=== PATIENT | female | born 1980 | race Caucasian/White ===

== ENCOUNTER 2020-12-25 07:39 | Outpatient (REF) | payer OTHER, SELFPAY ==
[2020-12-25 12:04] LABS: TSH reflex Free T4 1.35 uIU/mL (0.32-4.0)
== END 2020-12-25 07:40 | disposition home or self-care (01) ==
LOC: HO.HMGCLDS 07:39
PROVIDERS: PCP Student in an Organized Health Care Education/Training Program; Visit Provider Internal Medicine
DX: E05.00 Thyrotoxicosis with diffuse goiter without thyrotoxic crisis or storm (principal)
CPT/HCPCS: 36415; 84443

== ENCOUNTER 2021-02-18 12:58 | Outpatient (REF) | payer OTHER, SELFPAY ==
--- NOTE | ~2021-02-18 | MM_ITS ---
EXAMINATION: MM SCREENING DIGITAL BREAST TOMOSYNTHESIS, BILATERAL CLINICAL INFORMATION: Screening. Asymptomatic. Age 40. No prior breast imaging. Family history breast cancer, mother. The lifetime risk of breast cancer based on the Tyrer-Cuzick Model is 22%. COMPARISON: None (current study represents initial baseline exam). TECHNIQUE: Digital breast tomosynthesis is performed in both the craniocaudal and mediolateral oblique views along with computer-aided detection (CAD). Synthesized 2D images are generated from the tomosynthesis. FINDINGS: The breasts are heterogeneously dense, which may obscure small masses (ACR BI-RADS breast composition Category c). There are no significant masses, abnormal calcifications, or other abnormalities. The axilla and skin contours are unremarkable. MM/MM tomosynthesis screening BI IMPRESSION: No mammographic evidence of malignancy. ASSESSMENT: BI-RADS 1: Negative RECOMMENDATION: 1. Routine annual mammography screening. 2. The lifetime risk of breast cancer based on the Tyrer-Cuzick Model is 22%. Additional annual adjunct screening with breast MRI may be of benefit in women with a risk score of 20% or greater. This patient's information was entered into a reminder system with a target due date for their next mammogram.
== END 2021-02-18 12:59 | disposition home or self-care (01) ==
LOC: HO.MAMMO 12:58
PROVIDERS: Visit Provider Student in an Organized Health Care Education/Training Program
DX: Z12.31 Encounter for screening mammogram for malignant neoplasm of breast (principal)
CPT/HCPCS: 77063; 77067

== ENCOUNTER 2022-03-03 13:37 | Outpatient (REF) | payer OTHER, SELFPAY ==
--- NOTE | ~2022-03-03 | MM_ITS ---
EXAMINATION: MM SCREENING DIGITAL BREAST TOMOSYNTHESIS, BILATERAL CLINICAL INFORMATION: Screening. Asymptomatic. Family history breast cancer, mother and grandmother. The lifetime risk of breast cancer based on the Tyrer-Cuzick Model is 26%. COMPARISON: Mammography: 02/18/2021 (baseline) TECHNIQUE: Digital breast tomosynthesis is performed in both the craniocaudal and mediolateral oblique views along with computer-aided detection (CAD). Synthesized 2D images are generated from the tomosynthesis. FINDINGS: The breasts are heterogeneously dense, which may obscure small masses (ACR BI-RADS breast composition Category c). There are no significant masses, abnormal calcifications, or other abnormalities. Parenchymal pattern is similar to prior baseline exam. There is no developing density or architectural abnormality. The axilla and skin contours are unremarkable. No significant changes. MM/MM tomosynthesis screening BI IMPRESSION: No mammographic evidence of malignancy. ASSESSMENT: BI-RADS 1: Negative RECOMMENDATION: Routine annual mammography screening. This patient's information was entered into a reminder system with a target due date for their next mammogram.
== END 2022-03-03 13:38 | disposition home or self-care (01) ==
LOC: HO.MAMMO 13:37
PROVIDERS: PCP Student in an Organized Health Care Education/Training Program; Visit Provider Student in an Organized Health Care Education/Training Program
DX: Z12.31 Encounter for screening mammogram for malignant neoplasm of breast (principal)
CPT/HCPCS: 77063; 77067

== ENCOUNTER 2023-03-05 14:26 | Outpatient (REF) | payer OTHER, SELFPAY ==
--- NOTE | ~2023-03-05 | MM_ITS ---
EXAMINATION: MM SCREENING DIGITAL BREAST TOMOSYNTHESIS, BILATERAL CLINICAL INFORMATION: Screening. Asymptomatic. COMPARISON: Mammography: This study is compared with prior exams dating back to 2020. TECHNIQUE: Digital breast tomosynthesis is performed in both the craniocaudal and mediolateral oblique views along with computer-aided detection (CAD). Synthesized 2D images are generated from the tomosynthesis. FINDINGS: The breasts are heterogeneously dense, which may obscure small masses (ACR BI-RADS breast composition Category c). There are no significant masses, abnormal calcifications, or other abnormalities. MM/MM tomosynthesis screening BI IMPRESSION: No mammographic evidence of malignancy. ASSESSMENT: BI-RADS BI-RADS 1 - Negative RECOMMENDATION: Routine annual mammography screening. 1 year F/U This examination should not preclude the clinical evaluation of a suspicious palpable abnormality. This patient's information was entered into a reminder system with a target due date for their next mammogram.
== END 2023-03-05 14:27 | disposition home or self-care (01) ==
LOC: HO.MAMMO 14:26
PROVIDERS: Visit Provider Student in an Organized Health Care Education/Training Program
DX: Z12.31 Encounter for screening mammogram for malignant neoplasm of breast (principal)
CPT/HCPCS: 77063; 77067

== ENCOUNTER → 2023-03-05 14:45 | Outpatient (BNV) | payer OTHER, SELFPAY | PROVIDERS: Visit Provider Radiology Diagnostic Radiology | DX: Z12.31 Encounter for screening mammogram for malignant neoplasm of breast (principal) | CPT/HCPCS: 77063; 77067 ==

== ENCOUNTER 2023-12-28 08:33 | Outpatient (REF) | payer OTHER, SELFPAY ==
[2023-12-28 15:27] LABS: Alanine Aminotransferase 16 U/L (0-31); Albumin Level 4.1 g/dL (3.5-5.0); Alkaline Phosphatase 76 U/L (39-117); Anion Gap 15 (12-20); Aspartate Amino Transferase 16 U/L (5-31); Bilirubin Direct 0.1 mg/dL (0.0-0.5); Bilirubin Total 0.4 mg/dL (0.0-1.0); Blood Urea Nitrogen 11 mg/dL (9-16); Calcium 9.7 mg/dL (8.4-10.2); Carbon Dioxide 22 mmol/L (22-29); Chloride 106 mmol/L (96-108); Cholesterol 195 mg/dL (<200); Estimated Glomerular Filt Rate > 60; Glucose Random 86 mg/dL (60-115); HDL Cholesterol 52 mg/dL (>40); LDL Cholesterol Calculated 95 mg/dL (<100); Potassium 3.8 mmol/L (3.3-5.1); Sodium 139 mmol/L (135-145); Total Protein 7.4 g/dL (6.5-8.0); Triglycerides 241 mg/dL (<150)
[2023-12-28 15:44] LABS: TSH reflex Free T4 2.99 uIU/mL (0.32-4.0)
[2023-12-31 08:33] LABS: HIV AB/AG Nonreactive (Nonreactive); HIV Num 1 0.04 S/CO (0.00-0.99); ~HepC Num1 0.19 S/CO (0.00-0.79); ~Hepatitis C Antibody Nonreactive (Nonreactive)
== END 2023-12-28 08:34 | disposition home or self-care (01) ==
LOC: HO.CHCLDS 08:33
PROVIDERS: Visit Provider Student in an Organized Health Care Education/Training Program
DX: Z00.00 Encounter for general adult medical examination without abnormal findings (principal); E78.1 Pure hyperglyceridemia; E05.00 Thyrotoxicosis with diffuse goiter without thyrotoxic crisis or storm
CPT/HCPCS: 36415; 80048; 80061; 80076; 84443; 86803; 87389

== ENCOUNTER 2025-02-19 08:55 | Outpatient (REF) | payer OTHER, SELFPAY ==
--- OUTSIDE RECORDS SUMMARY | 2025-02-19 08:12 | XMS_ITS | Encounter Summary ---
Author Organization [facility] Address [address] [place] [address] Care Team Providers Care Fruit And Vegetable Classer Name Role Phone Cheri Spencer TELEGRAPHIC TYPEWRITER REPAIRER Primary Care Provider [phone] Reason for Referral * Imaging (Routine) - Authorized Specialty Diagnoses / Procedures Referred By Rohit t Referred To Contact Radiology Diagnoses Encounter for screening mammogram for breast cancer Procedures MG Mammo Digital Screening w Doyle bilat [facility], Self Referral [facility] Referral ID Status Reason Start Date Expiration Date V isits Requested Visits Authorized [id number] Authorized 01/13/2025 01/13/2026 1 1 * Imaging (Routine) - Authorized Specialty Diagnoses / Procedures Referred By Contac t Referred To Contact Radiology Diagnoses Encounter for screening mammogram for breast cancer Procedures MG Mammo Digital Screening w Doyle bilat [facility], Self Referral [facility] Referral ID Status Reason Start Date Expiration Date V isits Requested Visits Authorized [id number] Authorized 01/13/2025 01/13/2026 1 1 Reason for Visit * Imaging (Routine) - Authorized Specialty Diagnoses / Procedures Referred By Contac t Referred To Contact Radiology Diagnoses Encounter for screening mammogram for breast cancer Procedures MG Mammo Digital Screening w Doyle bilat [facility], Self Referral [facility] Referral ID Status Reason Start Date Expiration Date V isits Requested Visits Authorized [id number] Authorized 01/13/2025 01/13/2026 1 1 Encounter Details Date Type Department Care Team (Latest Contact Info) Description 02/19/2025 8:12 AM EST Hospital [facility] [address] [id number] Encounter for screening mammogram for breast cancer Social History Tobacco Use Types Packs/Day Years Used Date Smoking Tobacco: Never Assessed Comments No Sex and Gender Information Value Date Recorded Sex Assigned at Not on file Legal Sex Female 1:57 PM EST Gender Identity Not on file Sexual Orientation Not on file documented as of this encounter Plan of Treatment Not on file documented as of this encounter Procedures Procedure Name Priority Date/Time Associated Diagnosis Comments MG MAMMO DIGITAL SCREENING W DOYLE BILAT Routine 02/19/2025 8:24 AM EST Encounter for screening mammogram for breast cancer documented in this encounter Results * MG Mammo Digital Screening w Doyle bilat (02/19/2025 8:24 AM EST) Anatomical Region Laterality Modality Breast Bilateral Mammography 02/19/2025 8:38 AM EST Impressions 02/19/2025 8:39 AM EST No evidence of breast malignancy. BI-RADS CATEGORY: 1 - NEGATIVE RECOMMENDATION: Screening bilateral mammogram is recommended in 1 year. Mammo Location: [facility], [address] [place] [address], [id number], . -------- FINAL REPORT -------- Dictated By: Consuelo Cobb Dictated Date: 02/19/2025 08:38 ET Assigned Physician: Consuelo Cobb Reviewed and Electronically Signed By: Consuelo Cobb Signed Date: 02/19/2025 08:39 ET Workstation ID: [id number] Transcribed By: Self Edit Transcribed Date: 02/19/2025 08:38 ET Narrative 02/19/2025 8:39 AM EST CLINICAL: 44 years old, Female, routine annual exam. COMPARISON: No prior studies dating back to 2020 TECHNIQUE: Bilateral MLO and CC views were obtained digitally with 3-D mammogram (digital breast tomosynthesis). Computer-aided detection was utilized in evaluation of this exam (CAD). FINDINGS: There is no evidence of suspicious mass or architectural distortion. No worrisome calcifications are evident. There has been no significant change from prior exam(s). BREAST DENSITY: C - The breasts are heterogeneously dense which may obscure small masses. Procedure Note Consuelo Cobb MD - 02/19/2025 CLINICAL: 44 years old, Female, routine annual exam. COMPARISON: No prior studies dating back to 2020 TECHNIQUE: Bilateral MLO and CC views were obtained digitally with 3-Dmammogram (digital breast tomosynthesis). Computer-aided detection wasutilized in evaluation of this exam (CAD). FINDINGS: There is no evidence of suspicious mass or architectural distortion. Noworrisome calcifications are evident. There has been no significantchange from prior exam(s). BREAST DENSITY: C - The breasts are heterogeneously dense which mayobscure small masses. IMPRESSION: No evidence of breast malignancy. BI-RADS CATEGORY: 1 - NEGATIVE RECOMMENDATION: Screening bilateral mammogram is recommended in 1 year. Mammo Location: [facility], [address] [place] [address], [id number], . -------- FINAL REPORT -------- Dictated By: Consuelo Cobb Dictated Date: 02/19/2025 08:38 ET Assigned Physician: Consuelo Cobb Reviewed and Electronically Signed By: Consuelo Cobb Signed Date: 02/19/2025 08:39 ET Workstation ID: [id number] Transcribed By: Self Edit Transcribed Date: 02/19/2025 08:38 ET us Self Referral [facility] IMG BI PROCEDURES Final Resul t documented in this encounter Visit Diagnoses Diagnosis Encounter for screening mammogram for breast cancer documented in this encounter Care Teams Fruit And Vegetable Classer Relationship Specialty Start Date End Date Cheri Spencer NP [address] [place] [id number] PCP - General Family Medicine 02/19/25 documented as of this encounter
--- OUTSIDE RECORDS SUMMARY | 2025-02-19 09:36 | XMS_ITS | Encounter Summary ---
Author Organization [facility] Address [address] [place] [address] [address] [place] [address] Care Team Providers Care Decision Unit Rn Name Role Phone Macey Arevalo MD Primary Care Provider [phone] Cheri Spencer CNP Primary Care Provider [phone] Reason for Visit * Reason Comments Med Refill Encounter Details Date Type Department Care Team ([facility] st Contact Info) Description 12/04/2022 Refill [facility] MED & PEDS [address] [place] [address] Macey Arevalo MD [address] [place] [address] Hypercholesterolemia Social History Tobacco Use Types Packs/Day Years Used Date Smoking Tobacco: Never Smokeless Tobacco: Never Alcohol Use Standard Drinks/Week Comments Never 0 (1 standard drink = 0.6 oz pur e alcohol) Comments Unknown Sex and Gender Information Value Date Recorded Sex Assigned at Female 02/13/2022 10:17 AM EDT Legal Sex Female 10:17 AM EDT Gender Identity Female 02/13/2022 10:17 AM EDT Sexual Orientation Don't know 02/13/2022 10 :17 AM EDT documented as of this encounter Plan of Treatment Not on file documented as of this encounter Visit Diagnoses Diagnosis Hypercholesterolemia Pure hypercholesterolemia documented in this encounter Care Teams Decision Unit Rn Relationship Specialty Start Date End Date Macey Arevalo MD [address] [place] [id number] PCP - General Family Medicine 09/05/13 11/19/24 Cheri Spencer CNP [address] [place] [address] PCP - General Family Medicine 11/20/24 documented as of this encounter
--- OUTSIDE RECORDS SUMMARY | 2025-02-19 09:36 | XMS_ITS | Clinical Summary ---
Author Organization [facility] Address [address] [place] [address] Phone Care Team Providers Care Telecommunications Field Engineer Name Role Phone Cheri Spencer NP Primary Care Provider [phone] Encounters Date Type Department Care Team Description 02/19/2025 8:12 AM EST Hospital [facility] [address] [address] Encounter for screening mammogram for breast cancer from Last 3 Months Family History Medical History Relation Name Comments Breast cancer Maternal Grandmother Breast cancer Mother Relation Name Status Comments Maternal Grandmother Mother Social History Tobacco Use Types Packs/Day Years Used Date Smoking Tobacco: Never Assessed Comments No Sex and Gender Information Value Date Recorded Sex Assigned at Not on file Legal Sex Female 1:57 PM EST Gender Identity Not on file Sexual Orientation Not on file Obstetrics History Para Term AB IAB SAB Ectopic Multiple Livin g Live Births 0 Last Filed Vital Signs Vital Sign Reading Time Taken Comments Blood Pressure - - Pulse - - Temperature - - Respiratory Rate - - Oxygen Saturation - - Inhaled Oxygen Concentration - - Weight 79.4 kg (175 lb) 02/18/2024 2:37 PM EST Height 160 cm (5' 3 ) 02/18/2024 2:37 PM EST Body Mass Index 31 02/18/2024 2:37 PM EST Plan of Treatment Health Maintenance Due Date Last Done Comments Cervical Cancer Screening: P ap Smear 2001 HPV Vaccines (1 - 3-dose SCD M series) 12/13/2007 Hepatitis B Vaccines (3 of 3 - 19+ 3-dose series) 01/26/2016 12/01/2015, 07/16/2015 Social Influencers of Health Screening 03/15/2022 Depression Screening 04/16/2024 COVID-19 Vaccine (1 - 2023-2 5 season) 2024 Influenza Vaccine (#1) 2024 Breast Cancer Screening 02/19/2027 02/20/20, 02/18/2024 Cholesterol Screening (Lipid Panel) 12/27/2028 12/28/2023 DTaP,Tdap,and Td Vaccines (4 - Td or Tdap) 12/20/2033 12/21/2023, 02/07/2014, 09/25/2008 RSV Immunization Adult Patients (1 - 1-dose 75+ series) 12/13/2055 HIV Screening Completed 12/28/2023 Hepatitis C Screening Completed 12/28/2023 HIB Vaccines Aged Out No longer eligi ble based on patient's age to complete this topic Hepatitis A Vaccines Aged Out No long er eligible based on patient's age to complete this topic IPV Vaccines Aged Out No longer eligi ble based on patient's age to complete this topic MMR Vaccines Aged Out No longer eligi ble based on patient's age to complete this topic Meningococcal ACWY Vaccine Aged Out N o longer eligible based on patient's age to complete this topic Meningococcal B Vaccine Aged Out No l onger eligible based on patient's age to complete this topic Pneumococcal Vaccine: Pediatrics (0 to 5 Years) and At-Risk Patients (6 to 49 Years) Aged Out No longer eligible b ased on patient's age to complete this topic RSV Immunization Patients Under 20 months Aged Out No longer eligible b ased on patient's age to complete this topic Varicella Vaccines Aged Out No longer eligible based on patient's age to complete this topic Procedures Procedure Name Priority Date/Time Associated Diagnosis Comments MG MAMMO DIGITAL SCREENING W DOYLE BILAT Routine 02/19/2025 8:24 AM EST Encounter for screening mammogram for breast cancer from Last 3 Months Results * MG Mammo Digital Screening w Doyle bilat (02/19/2025 8:24 AM EST) Anatomical Region Laterality Modality Breast Bilateral Mammography 02/19/2025 8:38 AM EST Impressions 02/19/2025 8:39 AM EST No evidence of breast malignancy. BI-RADS CATEGORY: 1 - NEGATIVE RECOMMENDATION: Screening bilateral mammogram is recommended in 1 year. Mammo Location: [facility], [address] [place] [address], [address], . -------- FINAL REPORT -------- Dictated By: Consuelo Cobb Dictated Date: 02/19/2025 08:38 ET Assigned Physician: Consuelo Cobb Reviewed and Electronically Signed By: Consuelo Cobb Signed Date: 02/19/2025 08:39 ET Workstation ID: [id number] Transcribed By: Self Edit Transcribed Date: 02/19/2025 [...] year. Mammo Location: [facility], [address] [place] [address], [address], . -------- FINAL REPORT -------- Dictated By: Consuelo Cobb Dictated Date: 02/19/2025 08:38 ET Assigned Physician: Consuelo Cobb Reviewed and Electronically Signed By: Consuelo Cobb Signed Date: 02/19/2025 08:39 ET Workstation ID: [id number] Transcribed By: Self Edit Transcribed Date: 02/19/2025 08:38 ET us Self Referral [facility] IMG BI PROCEDURES Final Resul t from Last 3 Months Insurance [employer] Care Teams Telecommunications Field Engineer Relationship Specialty Start Date End Date Cheri Spencer NP [address] [place] [id number] PCP - General Family Medicine 02/19/25
--- OUTSIDE RECORDS SUMMARY | 2025-02-19 09:36 | XMS_ITS | Encounter Summary ---
Author Organization [facility] Address [address] [facility] [address] [place] [address] Care Team Providers Care Account Information Clerk Name Role Phone Macey Arevalo MD Primary Care Provider [phone] Cheri Spencer CNP Primary Care Provider [phone] Encounter Details Date Type Department Care Team (Late st Contact Info) Description 02/22/2024 Orders Only [facility] MED & PEDS [address] [place] [address] Provider, MD Bee Social History Tobacco Use Types Packs/Day Years Used Date Smoking Tobacco: Never Smokeless Tobacco: Never Alcohol Use Standard Drinks/Week Comments Never 0 (1 standard drink = 0.6 oz pur e alcohol) Depression Answer Date Recorded Patient Health Questionnaire-9 Score 1 12/21/2023 Patient Health Questionnaire-9 Score 1 12/21/2023 Last PHQ-9: Questionnaire Data Not on file 0 12/21/2023 Housing Stability Answer Date Recorded What is your housing situation today? I have yannick ferrera 02/19/[address] you li ve. Do you have problems with any of the following? None of the above 02/19/2023 Food Insecurity Answer Date Recorded Within the past 12 months, y ou worried that your food would run out before you got money to buy more: Never True 02/19/2023 Within the past 12 months,th e food you bought just didn't last and you didn't have enough money to get more: Never True 09/2022 Transportation Answer Date Recorded In the past 12 months, has l ack of transportation kept you from medical appts, meetings, work or from getting things needed for daily living? No 02/19/2023 Utilities Answer Date Recorded In the past 12 months, has t he electric, gas, oil or water company threatened to shut off services in your home? No 02/19/2023 Depression Answer Date Recorded Patient Health Questionnaire-2 Score 0 12/21/2023 Comments Unknown Sex and Gender Information Value Date Recorded Sex Assigned at Female 02/13/2022 10:17 AM EDT Legal Sex Female 10:17 AM EDT Gender Identity Female 02/13/2022 10:17 AM EDT Sexual Orientation Don't know 02/13/2022 10 :17 AM EDT documented as of this encounter Plan of Treatment Not on file documented as of this encounter Procedures Procedure Name Priority Date/Time Associated Diagnosis Comments HM MAMMOGRAPHY Routine 02/18/2024 8:40 AM EST documented in this encounter Results * Hm Mammography (02/18/2024 8:40 AM EST) Anatomical Region Laterality Modality Other Historical Provider HEALTH MAINTENANCE Final Result documented in this encounter Visit Diagnoses Not on filedocumented in this encounter Additional Health Concerns Assessment Noted Time PHQ-9 Depression Total Score: 1 12/21/19 24 11:03 AM EDT documented as of this encounter Care Teams Account Information Clerk Relationship Specialty Start Date End Date Macey Arevalo MD [address] [place] [address] PCP - General Family Medicine 09/05/13 11/19/24 Cheri Spencer CNP [address] [place] [address] PCP - General Family Medicine 11/20/24 documented as of this encounter
--- OUTSIDE RECORDS SUMMARY | 2025-02-19 09:36 | XMS_ITS | Encounter Summary ---
Author Organization [facility] Address [address] [place] [id number] Care Team Providers Care Shipping Assistant Name Role Phone Macey Arevalo MD Primary Care Provider Cheri Spencer CNP Primary Care Provider [phone] Reason for Visit * Reason Comments Med Refill Encounter Details Date Type Department Care Team ([facility] st Contact Info) Description 09/14/2022 Refill [facility] MED & PEDS [address] [place] [address] Macey Arevalo MD [address] [place] [address] Hypercholesterolemia Social History Tobacco Use Types Packs/Day Years Used Date Smoking Tobacco: Never Assessed Comments Unknown Sex and Gender Information Value [...] hypercholesterolemia documented in this encounter Care Teams Shipping Assistant Relationship Specialty Start Date End Date Macey Arevalo MD [address] [place] [address] PCP - General Family Medicine 09/05/13 11/19/24 Cheri Spencer CNP [address] [place] [address] PCP - General Family Medicine 11/20/24 documented as of this encounter
--- OUTSIDE RECORDS SUMMARY | 2025-02-19 09:37 | XMS_ITS | Clinical Summary ---
Author Organization [employer] Address [address] [place] [address] [address] [place] [address] Care Team Providers Care Corn Grower Name Role Phone Tj Robinsonjairfabrizio GENARO Primary Care Provider [phone] Allergies Active Allergy Reactions Criticality Noted Date Comments Codeine Nausea Only Medications gemfibrozil (Lopid) 600 MG tabletIndication s:Hypertriglycer idemia Take 1 tablet (600 mg) by mouth before breakfast and before evening meal. 60 tablet 11 02/06/20 25 026 Active drospirenone-eth inyl estradiol (Leticia) 3-0.03 MG tabletIndication s:Encounter for contraceptive management, unspecified type Take 1 tablet by mouth Once per day. 84 tablet 3 02/06/20 25 Active traZODone (Desyrel) 100 MG tabletIndication s:Insomnia, unspecified type Take 1 tablet (100 mg) by mouth at bedtime. 180 tablet 1 02/06/20 25 Active gemfibrozil (Lopid) 600 MG tablet Take 1 tablet (600 mg) by mouth before breakfast and before evening meal. 60 tablet 11 01/04/20 24 025 Discontinued(R eorder (will not trigger notification to Pharmacy)) Leticia 3-0.03 MG tabletIndication s:Encounter for contraceptive management, unspecified type TAKE 1 TABLET BY MOUTH EVERY DAY 84 tablet 3 03/25/20 24 025 Discontinued(R eorder (will not trigger notification to Pharmacy)) traZODone (Desyrel) 100 MG tablet TAKE 1 TABLET BY MOUTH TWICE A DAY AFTER MEALS 180 tablet 1 04/28/19 25 025 Discontinued(R eorder (will not trigger notification to Pharmacy)) Active Problems Problem Noted Date Diagnosed Date Palpitation 07/12/2022 Assessment & Plan (07/12/2022 2:38 PM EDT): Patient with hx of hyperthyroidism, refers she experienced a episoide of palpitation/tachycardia after a workout, denied weight loss/tremors/diarrhea/mood changes. Patient off methimazole, will order new labs for guidance of therapy Hypertriglyceridemia 07/12/2022 Assessment & Plan (02/05/2025 1:34 PM EDT): Recheck lipids today Refilled medications Orders: gemfibrozil (Lopid) 600 MG tablet; Take 1 tablet (600 mg) by mouth before breakfast and before evening meal. Assessment & Plan (07/12/2022 2:39 PM EDT): On gemfibrozil, will order new labs for guidance of therapy Graves' disease 08/15/2012 Resolved Problems Problem Noted Date Diagnosed Date Resolved Date Phobia 08/15/2012 02/05/2025 Encounters Date Type Department Care Team Description 02/05/2025 1:00 PM EDT Office Visit [facility] [address] [place] [address] Cheri Spencer CNP Encounter for physical examination (Primary Dx); Encounter for screening mammogram for breast cancer; Encounter for contraceptive management, unspecified type; Hypertriglyceridemia; Insomnia, unspecified type; Encounter for gynecological examination; Elevated BP reading w/ no diagnosis of HTN 02/05/2025 Travel 02/04/2025 Travel 01/30/2025 Telephone [facility] [address] [place] [address] Cheri Spencer CNP chart prep 01/16/2025 Telephone [facility] [address] [place] [address] Cheri Spencer CNP triage from Last 3 Months Immunizations Immunization Administration Dates Next Due Hep B, adult 12/01/2015,07/16/2015 Td (adult), 5 Lf tetanus tox oid, preservative free, adsorbed 02/07/2014,09/25/2008 Tdap 12/21/2023 Social History Tobacco Use Types Packs/Day Years Used Date Smoking Tobacco: Never Smokeless Tobacco: Never Tobacco Cessation:Counseling Given: Not Answered Alcohol Use Standard Drinks/Week Comments Never 0 (1 standard drink = 0.6 oz pur e alcohol) Depression Answer Date Recorded Patient Health Questionnaire-9 Score 3 02/05/2025 Patient Health Questionnaire-9 Score 3 02/05/2025 Last PHQ-9: Questionnaire Data Not on file 1 Housing Stability Answer Date Recorded What is your housing situation today? I have yannick ferrera 02/05/[address] you li ve. Do you have problems with any of the following? None of the above 02/05/2025 Food Insecurity Answer Date Recorded Within the past 12 months, y ou worried that your food would run out before you got money to buy more: Never True 02/05/2025 Within the past 12 months,th e food you bought just didn't last and you didn't have enough money to get more: Never True Transportation Answer Date Recorded In the past 12 months, has l ack of transportation kept you from medical appts, meetings, work or from getting things needed for daily living? No 02/05/2025 Utilities Answer Date Recorded In the past 12 months, has t he electric, gas, oil or water company threatened to shut off services in your home? No 02/05/2025 Depression Answer Date Recorded Patient Health Questionnaire-2 Score 0 02/05/2025 Internet Access Answer Date Recorded Internet Access Q1 Yes 02/05/2025 Internet Access Q2 Not on file 02/05/2025 Comments No Sex and Gender Information Value Date Recorded Sex Assigned at Female 02/13/2022 10:17 AM EDT Legal Sex Female 10:17 AM EDT Gender Identity Female 02/13/2022 10:17 AM EDT Sexual Orientation Don't know 02/13/2022 10 :17 AM EDT Last Filed Vital Signs Vital Sign Reading Time Taken Comments Blood Pressure 140/86 02/05/2025 1:12 PM EDT Pulse 82 02/05/2025 1:12 PM EDT Temperature 36.8 C (98.2 F) 02/05/2025 1:12 PM EDT Respiratory Rate 16 02/05/2025 1:12 PM EDT Oxygen Saturation 98% 02/05/2025 1:12 PM EDT Inhaled Oxygen Concentration - - Weight 80.3 kg (177 lb) 02/05/2025 1:12 PM EDT Height 165 cm (5' 4.96 ) 02/05/2025 1:12 PM EDT Body Mass Index 29.49 02/05/2025 1:12 PM EDT Plan of Treatment Health Maintenance Due Date Last Done Comments Family Planning (PISQ) 12/13/1995 HPV Vaccines (1 - 3-dose series) 12/13/1995 Pap Smear 2001 Hepatitis B Vaccines (3 of 3 - 19+ 3-dose series) 01/26/2016 12/01/2015, 07/16/2015 Cervical Cancer Screening 02/05/2024 HPV/Cotest 02/05/2024 02/04/2019 COVID-19 Vaccine ( season) 2024 Influenza Vaccine (#1) 2024 Alcohol/Substance Use Screening 02/05/2026 02/05/2025 Depression Screening 02/05/2026 02/05/2025, 02/06/20 25 Disability Screening 02/05/2026 02/05/2025 SDOH Screening 02/05/2026 02/05/2025 Tobacco Screening 02/05/2026 02/05/2025 Mammogram 02/17/2026 02/18/2024, 11/0 07/2023, 02/18/2024, Additional history exists Zoster Vaccines (1 of 2) 2030 DTaP/Tdap/Td Vaccines (2 - Td or Tdap) 12/20/2033 12/21/2023, 02/07/2014, 09/25/2008 RSV Patients and Patients Aged 60 years or older (1 - 1-dose 75+ series) 12/13/2055 HIV [...] patient's age to complete this topic Meningococcal Vaccine Aged Out No tejas summer eligible based on patient's age to complete this topic Pneumococcal Vaccine: Pediatrics (0 to 5 Years) and At-Risk Patients (6 to 49) Years Aged Out No longer eligible based on patient's age to complete this topic RSV under 20 months Aged Out No longe r eligible based on patient's age to complete this topic Rotavirus Vaccines Aged Out No longer eligible based on patient's age to complete this topic Procedures Procedure Name Priority Date/Time Associated Diagnosis Comments HM MAMMOGRAPHY Routine 02/18/2024 8:40 AM EST HEPATITIS C AB W/REFL TO HCV RNA, QN, PCR Routine 12/28/2023 8:34 AM EDT PE (physical exam), annual HIV 1/2 ANTIGEN/ANTIBODY, FOURTH GENERATION W/RFL Routine 12/28/2023 8:34 AM EDT PE (physical exam), annual ZZZ HISTORICAL HPV MRNA E6/E7 Routine 02/04/2019 12:00 AM EDT from Last 3 Months or Most Recently Relevant to Health Maintenance Results * Hm Mammography (02/18/2024 8:40 AM EST) Anatomical Region Laterality Modality Other Historical Provider HEALTH MAINTENANCE Final Result * Hepatitis C Antibody with Reflex to HCV, RNA, Quantitative, Real-Time PCR (12/28/2023 8:34 AM EDT) Hepatitis C Antibody Nonreactive Nonreactive [facility] Comment:Antibodies to HCV no t detected; does not exclude early acuteHCV infection. Blood Venous blood specimen / Unknown 12/28/2023 8:34 AM EDT 12/28/2023 2:52 PM EDT Macey Arevalo MD LAB BLOOD ORDERABLES Final Resul t [facility] [address] [place] [phone] * HIV-1/2 Antigen and Antibodies, Fourth Generation, with Reflexes (12/28/2023 8:34 AM EDT) Pathologist [facility] HIV AB/AG Nonreactive Nonreactive [facility] Comment:HIV-1 p24 Ag and/or HIV-1/HIV-2 Ab not detected.A test result that is nonreactive does not exclude thepossibility of exposure to or infection with HIV-1 and/orHIV-2. Nonreactive results in this assay for individualswith prior exposure to HIV-1 and/or HIV-2 may be due toantigen and antibody levels that are below the limit ofdetection of this assay.The [employer] HIV Ag/Ab Combo assay result andsupplemental assay results should be interpreted inconjunction with the patient's clinical presentation,history and other laboratory results. If the results areinconsistent with clinical evidence, additional testing issuggested to confirm the result. Blood Venous blood specimen / Unknown 12/28/2023 8:34 AM EDT 12/28/2023 2:52 PM EDT us Macey Arevalo MD LAB BLOOD ORDERABLES Final Resul t [facility] [address] [place] [address] [phone] * HPV mRNA E6/E7 (02/04/2019 12:00 AM EDT) [facility] HPV mRNA E6/E7 Not Detected NOT DETECTED [facility] Comment: This test was performed using the APTIMA(R) HPV Assay ([employer] This assay detects E6/E7 viral messenger RNA (mRNA) from 14 high-risk HPV types (16,18,31,33,35,39,45,51, 52,56,58,59,66,68). For additional information please refer to: http://education.[employer]/faq/BOG249g5 (This link is being provided for informational/ educational purposes only.) The analytical performance characteristics of this assay have been determined by [facility] [place]. The modifications have not been cleared or approved by the FDA. This assay has been validated pursuant to the CLIA regulations and is used for clinical purposes. Test Performed by [facility] [employer] [place], [address] [place], [place] Sarwat Hendricks M.D., Ph.D., Director of Laboratories , CLIA [id number] Please note: Effective 12/27/2015, HPV testing will be performed using [employer]'s APTIMA test which targets mRNA. Detecting mRNA instead of DNA, as in older methods, offers significant improvements in specificity. 02/04/2019 us Macey Arevalo MD HISTORICAL/NON ORDERABLE LABS Fi nal Result [facility] [address] from Last 3 Months or Most Recently Relevant to [place] [id number] Care Teams Corn Grower Relationship Specialty Start Date End Date Cheri Spencer CNP PCP - General Family Medicine 11/20/24
[2025-02-19 14:11] LABS: MANUAL DIFF FLAG NO
[2025-02-19 14:17] LABS: Hematocrit 39.4 % (37.0-47.0); Hemoglobin 12.8 g/dl (12.0-16.0); Imm Gran Abs Auto 0.01 X10*3/uL (0.00-0.03); Imm Gran Pct Auto 0.1 % (0.0-0.4); Lymphocytes Absolute Auto 1.5 X10*3/uL (1.2-4.9); Mean Corpuscular HGB Conc 32.5 g/dl (31.0-35.0); Mean Corpuscular Hemoglobin 30.6 pg (27.0-33.0); Mean Corpuscular Volume 94.3 fL (80.0-98.0); NRBC Abs Auto 0.000 X10*3/uL (0.0-0.012); NRBC Pct Auto 0.0 /100WBC (0.0-0.2); Platelet Count 262 X10*3/uL (160-400); Red Blood Count 4.18 X10*6/uL (4.20-5.50); White Blood Count 6.7 X10*3/uL (4.8-10.8)
[2025-02-19 14:35] LABS: Anion Gap 12 (12-20); Blood Urea Nitrogen 12 mg/dL (9-16); Calcium 9.1 mg/dL (8.4-10.2); Carbon Dioxide 23 mmol/L (22-29); Chloride 107 mmol/L (96-108); Cholesterol 218 mg/dL (<200); Estimated Glomerular Filt Rate > 60; HDL Cholesterol 59 mg/dL (>40); Potassium 3.9 mmol/L (3.3-5.1); Sodium 138 mmol/L (135-145); Triglycerides 144 mg/dL (<150)
== END 2025-02-19 08:56 | disposition home or self-care (01) ==
LOC: HO.CHCLDS 08:55
DX: Z00.00 Encounter for general adult medical examination without abnormal findings (principal); Z13.6 Encounter for screening for cardiovascular disorders; Z13.29 Encounter for screening for other suspected endocrine disorder
CPT/HCPCS: 36415; 80048; 80061; 84443; 85025